=== PATIENT | female | born 1980 | race Caucasian/White ===

== ENCOUNTER → 2019-09-03 15:25 | Outpatient (CLI) | payer OTHER, SELFPAY ==
--- NOTE | 2019-09-03 15:30 | BI_ITS ---
MAMMOGRAPHY - BILATERAL SCREENING REASON FOR EXAM: Female, 39 years old. Routine annual screening examination. PERTINENT HISTORY: Non-contributory. TECHNIQUE: Digital bilateral breast ishaan (3D mammographic acquisition) in the CC and MLO projections. 2-D mediolateral oblique (MLO) and craniocaudad (CC) views of both breasts were obtained. CAD: Full Field Digital Mammography with Computer Added Detection was performed. COMPARISON: None. Baseline examination. FINDINGS: Breast Composition: The breasts are heterogeneously dense, which may obscure small masses. There are no dominant masses or suspicious calcifications. No other significant abnormalities are identified. BI/SCREEN MAMM (CAD) W/ISHAAN BILAT IMPRESSION: Negative screening mammogram. Yearly followup mammogram recommended. (A) ASSESSMENT CATEGORY: BIRADS Category 1: Negative. A letter regarding these results will be sent to the patient by the facility within 30 days. Approximately 10% of breast cancers are not detected by mammography. A normal mammogram should not delay biopsy of a clinically suspicious abnormality. [id number] Electronically Signed: Daryn Blas, at 8:23 EDT , Service support ,
== END ==
PROVIDERS: Family Provider Orthopaedic Surgery; PCP Orthopaedic Surgery; Referring Provider Obstetrics & Gynecology; Visit Provider Obstetrics & Gynecology
DX: Z12.31 Encounter for screening mammogram for malignant neoplasm of breast (principal)
CPT/HCPCS: 77063; 77067

== ENCOUNTER → 2019-09-10 | Outpatient (CLI) | payer OTHER, SELFPAY ==
[2019-09-10 11:51] VITALS: BMI 33.3
[2019-09-15 09:13] LABS: HPV APTIMA, High Risk Negative (Negative)
== END | disposition home or self-care (01) ==
LOC: PAVLAB 15:32
PROVIDERS: Family Provider Orthopaedic Surgery; PCP Orthopaedic Surgery; Visit Provider Nurse Practitioner Women's Health
DX: Z12.4 Encounter for screening for malignant neoplasm of cervix (principal)
CPT/HCPCS: 87624; 88175; G0145

== ENCOUNTER → 2022-11-15 | Outpatient (CLI) | payer OTHER, SELFPAY ==
--- NOTE | 2022-11-15 08:16 | BI_ITS ---
MAMMOGRAPHY - BILATERAL SCREENING REASON FOR EXAM: Female, 42 years old. Routine annual screening examination. PERTINENT HISTORY: Non-contributory. TECHNIQUE: Digital bilateral breast ishaan (3D mammographic acquisition) in the CC and MLO projections. 2-D mediolateral oblique (MLO) and craniocaudad (CC) views of both breasts were obtained. CAD: Full Field Digital Mammography with Computer Added Detection was performed. COMPARISON: Comparison is made with prior study 09/03/2019. FINDINGS: Breast Composition: The breasts are heterogeneously dense, which may obscure small masses. There are no dominant masses or suspicious calcifications. No other significant abnormalities are identified. There has been no significant change since the prior study. BI/SCRN MAMM (CAD)W/ISHAAN BILAT IMPRESSION: Stable bilateral screening mammogram. Yearly follow-up mammogram recommended. (A) ASSESSMENT CATEGORY: BIRADS Category 1: Negative. A letter regarding these results will be sent to the patient by the facility within 30 days. Approximately 10% of breast cancers are not detected by mammography. A normal mammogram should not delay biopsy of a clinically suspicious abnormality. [id number] Electronically Signed: Daryn Blas MD at 9:11 EST ,
== END | disposition home or self-care (01) ==
LOC: OPBI 08:14
PROVIDERS: PCP Orthopaedic Surgery; Visit Provider Nurse Practitioner Women's Health
DX: Z12.31 Encounter for screening mammogram for malignant neoplasm of breast (principal)
CPT/HCPCS: 77063; 77067

== ENCOUNTER → 2023-11-20 | Outpatient (CLI) | payer BC, SELFPAY ==
[2023-11-24 06:09] LABS: HPV APTIMA, High Risk Negative (Negative)
== END | disposition home or self-care (01) ==
LOC: LABSPEC 15:04
PROVIDERS: PCP Orthopaedic Surgery; Referring Provider Nurse Practitioner Women's Health; Visit Provider Nurse Practitioner Women's Health
DX: Z12.4 Encounter for screening for malignant neoplasm of cervix (principal)
CPT/HCPCS: 87624; 88175; G0145

== ENCOUNTER → 2023-11-28 | Outpatient (CLI) | payer BC, SELFPAY ==
--- NOTE | 2023-11-28 08:19 | BI_ITS ---
MAMMOGRAPHY - BILATERAL SCREENING REASON FOR EXAM: Female, 43 years old. Routine annual screening examination. PERTINENT HISTORY: Non-contributory. TECHNIQUE: Digital bilateral breast ishaan (3D mammographic acquisition) in the CC and MLO projections. 2-D mediolateral oblique (MLO) and craniocaudad (CC) views of both breasts were obtained. CAD: Full Field Digital Mammography with Computer Added Detection was performed. COMPARISON: Comparison is made with prior study dated November 15, 2022 and September 03, 2019. FINDINGS: Breast Composition: The breasts are heterogeneously dense, which may obscure small masses. There are no dominant masses or suspicious calcifications. Stable small benign-appearing bilateral axillary lymph nodes. No other significant abnormalities are identified. There has been no significant change since the prior study. BI/SCRN MAMM (CAD)W/ISHAAN BILAT IMPRESSION: Stable bilateral screening mammogram. Yearly follow-up mammogram recommended. (A) ASSESSMENT CATEGORY: BIRADS Category 2: Benign. A letter regarding these results will be sent to the patient by the facility within 30 days. Approximately 10% of breast cancers are not detected by mammography. A normal mammogram should not delay biopsy of a clinically suspicious abnormality. [id number] Electronically Signed: Daryn Blas MD at 9:24 EST ,
--- OUTSIDE RECORDS SUMMARY | 2023-11-28 08:50 | XMS RPT_ITS | CCD ---
Author Name Unknown Address [address] [place] [address] Organization [facility] Care Team Providers Care Plant Engineering Manager Name Role Phone LAYO REZA DO Admitting Unavailable LAYO REZA DO Primary Care Unavailable LAYO REZA DO Attending Unavailable ZACHARIAH WELLS MD Consulting Unavailable ZACHARIAH WELLS MD Referring Unavailable PROVIDER, UNKNOWN Consulting Unavailable PROVIDER, UNKNOWN Consulting Unavailable PROVIDER, UNKNOWN Consulting Unavailable Kimo MCKEON, Jose Ferrer (Rn)(Hist) Primary Care Provi ashley Unavailable Bo Mercado MD Primary Care Provider [phone] JOSHUA SOTO Admitting Unavailable BO MERCADO Primary Care Unavailable JOSHUA SOTO Attending Unavailable JOSHUA SOTO Consulting Unavailable BO MERCADO Primary Care Unavailable JOSHUA SOTO Attending Unavailable [facility]-, JOHNNY Mcgill Unavailable [phone] [place] Unavailable Unavailable CHENG WHITNEY Unavailable Nano ASTORGA MD Unavailable WALNUT YOMBA SHOSHONE Unavailable Unavailable ENT, GENERAL Unavailable Unavailable Michelle WELLS MD Unavailable REDD LEBRON MD Unavailable Nessa Whiting RN Unavailable Unavailable Ramy Johnson Unavailable Unavailable SLOAN TREVINO Unavailable Unavailable Manjula MCKEON, Manuela Unavailable Unavailable Elissa Navarrete Unavailable Unavailable RAMY JOHNSON Unavailable Unavailable Neida MCKEON, Denisse Unavailable Unavailab Coleen Collins Unavailable Unavailable Clarice Arnold Unavailable Unavailable Unavailable Unavailable Medications Current Medications Medication Drug Class(es) Dates Sig (Normalized) Sig (Original) miconazole nitrate 20 mg/ml vaginal cream (1 source) Azole Antifungal Monistat 7 2 % vaginal cream ; 1 in the evening (2 %) Comments: OTC Completed/Discontinued Medications Medication Drug Class(es) Dates Sig (Normalized) Sig (Original) amoxicillin 875 mg oral tablet (4 sources) Penicillin-class Antibacterial Start: 10-28-2022 End: 11-07-2022 take 1 tablet by mouth twice daily amoxicillin 875 mg oral tablet ; 1 (one) tablet two times daily for 10 days Quantity: 20 {Tablet} Refills: 0 Ordered: 25-Jan-2023 MD Michelle WELLS Start: 28-Oct-2022 End: 07-Nov-2022 Status: Inactive Problems Active Problems Problem Classification Problem Date Documented Date Episodic/Chronic Acute and chronic tonsillitis (1 source) Acute tonsillitis; Translations: [Acute tonsillitis, unspecified] 02-10-2011 Episodic Acute bronchitis (1 source) Acute bronchitis; Translations: [Acute bronchitis, unspecified] 08-03-2013 Episodic Administrative/social admission (2 sources) Patient encounter status; Translations: [Counseling, unspecified] 08-22-2018 Episodic Bacterial infection; unspecified site (1 source) Staphylococcal infectious disease; Translations: [Unspecified staphylococcus as the cause of diseases classified elsewhere] 01-01-2016 Episodic Biliary tract disease (6 sources) Gallbladder calculus with acute cholecystitis and no obstruction; Translations: [Calculus of gallbladder with acute and chronic cholecystitis without obstruction] Onset: 10-04-2023 10-18-2023 Episodic Other aftercare (1 source) Removal of sutures done; Translations: [Encounter for removal of sutures] 07-23-2020 Episodic Other and unspecified benign neoplasm (1 source) Pigmented skin lesion ; Translations: [Melanocytic nevi, unspecified] 07-06-2020 Episodic Other complications of (1 source) Mild hyperemesis gravidarum, unspecified as to episode of care or not applicable 01-14-2012 Episodic Other eye disorders (1 source) Subconjunctival hemorrhage; Translations: [Conjunctival hemorrhage, unspecified eye] 03-08-2012 Episodic Other nutritional; endocrine; and metabolic disorders (1 source) Obese class I; Translations: [Obesity, unspecified] Onset: 10-04-2023 10-04-2023 Chronic Other and delivery including normal (3 sources) Normal in primigravida; Translations: [Encounter for supervision of normal first , unspecified trimester] Onset: 02-17-2012 11-08-2021 Episodic Other skin disorders (2 sources) Skin tag; Translations: [Other hypertrophic disorders of the skin] 07-23-2014 Episodic Other skin disorders (3 sources) Mass of neck; Translations: [Localized swelling, mass and lump, neck] 07-23-2014 Episodic Other skin disorders (1 source) Unspecified hypertrophic and atrophic conditions of skin 02-15-2013 Episodic Other upper respiratory disease (1 source) Allergic rhinitis due to pollen; Translations: [Allergic rhinitis due to pollen] 04-01-2014 Chronic Other upper respiratory infections (2 sources) Bacterial sinusitis; Translations: [Chronic sinusitis, unspecified] 10-27-2023 Chronic Other upper respiratory infections (6 sources) Viral pharyngitis; Translations: [Acute pharyngitis, unspecified] 08-22-2018 Episodic Residual codes; unclassified (2 sources) Overweight; Translations: [Other specified conditions influencing health status] 02-18-2019 Episodic Skin and subcutaneous tissue infections (2 sources) Abscess; Translations: [Cellulitis, unspecified] 09-18-2017 Episodic Sprains and strains (1 source) Low back strain; Translations: [Strain of muscle, fascia and tendon of lower back, initial encounter] 11-22-2018 Episodic Unclassified (1 source) Post Op Onset: 10-18-2023 Past or Other Problems Problem Classification Problem Date Documented Date Episodic/Chronic Other complications of (2 sources) Nausea and vomiting; Translations: [Vomiting of , unspecified] Onset: 02-17-2012 02-17-2012 Episodic Unclassified (1 source) Physical examination - The patient is here for a annual physical. The patinet denies tobacco use. 10-27-2023 Unclassified (1 source) Cough - The onset of the cough has been sudden and has been occurring in a persistent pattern for 4 weeks. The course has been constant. The cough is characterized as moist and productive sputum (clear to green). The symptoms have been associated with headache (one time), hoarseness, night sweats, sore throat and wheezing, while the symptoms have not been associated with body aches, chest pain, dyspnea, fever or runny nose. 10-28-2022 Unclassified (1 source) Well Woman Visit - Note for Well Woman Visit : [employer] form for work. 09-15-2022 Unclassified (1 source) Suture removal - The sutures were placed here. The date the sutures were placed was 07/06/2020. The suture location is right abdomen. 07-23-2020 Unclassified (1 source) Excision - The lesion is located on the the trunk. 07-06-2020 Unclassified (1 source) Physical examination - The patient is here for a annual physical. 06-15-2020 Unclassified (1 source) Physical examination - The patient is here for a annual physical. Note for Physical examination : Yearly labs drawn at work 02-18-2019 Unclassified (1 source) Back Pain Lumbar, Acute - Note for Acute lumbar back pain : Pt was bending over giving her son a bath and felt pain in her lower left back. Pain is constant and worse with certain movements. Pain radiates down to her tailbone. Pt has been using ice and Aleve 2x daily.. 11-22-2018 Unclassified (1 source) sore throat - The sore throat has been occurring for 4 days. The symptoms have been associated with cough, ear pain and runny nose, while the symptoms have not been associated with fever. 08-22-2018 Unclassified (1 source) Skin lesion - The skin lesion appeared gradually and has been occurring for 2 weeks (Three days of redness and swelling at the site.). The skin lesion is characterized as red. The skin lesion is located on the groin (left.). There has been associated pain, while there has been no fever. 09-18-2017 Unclassified (1 source) Skin lesion - The skin lesion has been occurring for 1 week. The skin lesion is located on the lower extremity. There has been associated pain. Note for Skin lesion : right post proximal thigh 09-10-2016 Unclassified (1 source) Skin lesion - The skin lesion appeared rapidly and has been occurring for 1 week. The skin lesion is characterized as weeping. The skin lesion is located on the abdomen (right). 01-01-2016 Unclassified (1 source) sore throat - The onset of the sore throat has been acute and has been occurring in a persistent pattern for 6 days. The symptoms have been associated with cough (slight), ear pain, fever (102, but gone now.) and swelling of neck glands. 01-09-2015 Unclassified (1 source) Excision - Note for Excision : Patient has been seen previously for a skin tag on her left shoulder and is here to have a removed today. She also has a bump on the right side of neck that has not improved since her previous appt. in May. 07-23-2014 Unclassified (1 source) Skin lesion - Note for Skin lesion : Pt has a small hard knot on the right side of her neck. It has been there for about 2 months and is occasionally painful. She also has a raised skin tag on the back of her left shoulder she would like looked at and possible removed sometime. 06-10-2014 Unclassified (1 source) sore throat - The sore throat has been occurring for 3 weeks. There has been no associated fever. Note for sore throat : Seen 2 weeks ago, given Amoxicillin.. 04-01-2014 Unclassified (1 source) sore throat - The onset of the sore throat has been gradual and has been occurring in a persistent pattern for 1 week. The course has been unchanged. The symptoms have been associated with change in voice, difficulty in swallowing, post-nasal drip, sinus pain and swelling of neck glands. 03-10-2014 Unclassified (1 source) cough - The cough has been occurring for 1 week. The symptoms have been associated with fever. Note for cough : Here for exam. 08-03-2013 Unclassified (1 source) Skin lesion - The skin lesion has been occurring for 5 years. It has been increasing in size. The skin lesion is located on the neck. Note for Skin lesion : pt. has 2 skin tags? that she would like looked at today. 02-15-2013 Unclassified (1 source) sore throat - The onset of the sore throat has been acute and has been occurring for 4 days. The symptoms have been associated with runny nose (took sudafed x 1.). Note for sore throat : pt is .. 03-08-2012 Unclassified (1 source) Abdominal Pain, Female - Symptoms include confirmed , while symptoms do not include nausea or vomiting. The pain is located in the entire abdomen. The patient describes the pain as crampy. Onset was gradual 2 week(s) ago. The symptoms occur constantly. The patient describes this as worsening. Note for Abdominal Pain, Female : States she would not describe her stomach as painful , just uncomfortable . States just drinking a little bit of water makes me burp . Did have a positive test. Thinks she is about 8 weeks along. Here for exam. 01-14-2012 Unclassified (1 source) Sore throat - The sore throat has been occurring for 1 day. There has been associated chills, cough, generalized achiness and left ear pain. Note for Sore throat : C/o sore spot on tongue. 02-10-2011 Results Test Name Value Interpretation Reference Range Facil ity Vital Signs Date Time Vital Sign Value Performing Clinician Faci lity 10-27-2023 14:22-0500 Body height 165.1 cm JOHNNY WELLS iwi Work Phone: [employer]; [place] [employer] 10-27-2023 14:22-0500 Body mass index (BMI) [Ratio] 32.8 kg/m2 JOHNNY WELLS iwi Work Phone: [employer]; [place] [employer] 10-27-2023 14:22-0500 Body surface area Derived from formula 1.97 m2 JOHNNY WELLS iwi Work Phone: [employer]; [facility] [employer] 10-27-2023 14:22-0500 Body temperature 98.5 [degF] JOHNNY WELLS iwi Work Phone: [employer]; [facility] [employer] Encounters Encounter Date Encounter Type Care Provider Facility Start: 10-27-2023 End: 10-27-2023 Patient encounter procedure JOHNNY WELLS iwi Work Phone: [employer]; [facility] [employer] Start: 10-27-2023 End: 10-27-2023 Periodic preventive med est patient 40-64yrs JOHNNY WELLS iwi Work Phone: [facility] [employer] Start: 10-18-2023 End: 10-18-2023 ambulatory BO MERCADO Facility:[id number] Start: 10-18-2023 End: 10-18-2023 Patient encounter procedure Joshua Soto MD Work Phone: [facility] Procedures Date Procedure Procedure Detail Performing Clinician Start: 11-13-2023 End: 11-13-2023 Microscopic examination of cervical Papanicolaou smear JOHNNY WELLS [facility]- Work Phone: Plan of Treatment Date Care Activity Detail Author Start: 07-14-2023 Covid-19 Vaccine () Covid-19 Vaccine () [facility] Start: 07-14-2023 Influenza vaccination Influenza Vacc ine (#1) [facility] Start: 11-13-2022 Depression Assessment Depression Ass essment [facility] Start: 06-26-2022 Urine microalbumin profile DTaP,Tdap,Td Vaccine (2 - Td or Tdap) [facility] Start: 02-18-2019 Patient Education [facility]; [facility] [employer] Start: 2019 Mammography Mammogram Screening [facility] Start: 11-22-2018 Patient Education [employer]; [employer]. Start: 01-19-2017 HPV Testing HPV Testing [facility] Start: 01-19-2017 Pap Testing Pap Testing [facility] Start: 09-10-2016 Patient Education CELLULITIS I ndication: Cellulitis and abscess Start: 10-Sep-2016 Instruction Type: Patient Education [employer]; [facility] [employer] YOMBA SHOSHONE [employer]. Start: 08-03-2013 Patient Education Acute Bronch itis: acute bronchitis Indication: Acute bronchitis Start: 03-Aug-2013 Instruction Type: Patient Education [employer]; [employer] Start: 1997 Hepatitis C Screening Hepatitis C Sc guanaconing [facility] Start: 1997 HIV Screening HIV Screening [facility] Start: 1979 Covid-19 Vaccine (#1) Covid-19 Vacci ne (#1) [facility] Start: 1979 Hepatitis B Vaccine (1 of 3 - 3-dose series) Hepatitis B Vaccine (1 of 3 - 3-dose series) [facility] Immunizations Immunization Date Immunization Notes Care Provider Lucia meraluly 06-26-2012 tetanus toxoid, redu jose ramon diphtheria toxoid, and acellular pertussis vaccine, adsorbed Layo Jarvisman Work Phone: [facility] influenza virus vaccine, unspecified formulation JOHNNYCarissa WELLS [facility]- Work Phone: [facility] [employer]; [employer] [facility] Emergency DepartmentDatavolution Payers Date Payer Category Payer Unknown [id number] 2022 Unknown [id number] 1980 Unknown [id number] Social History Date Type Detail Facility Start: 01-20-2012 Tobacco smoking stat [facility] Never smoked tobacco [facility] Work Phone: Start: 01-20-2012 Tobacco use and exposure Smokeless tobacco non-user [facility] Work Phone: Start: 10-08-2012 End: 10-18-2023 Alcohol intake Current drinker of alcohol (finding) [facility] Start: 01-17-2012 Alcohol Comment occasionally,N OT WHILE [facility] Start: 1980 Sex Assigned At Not on file [facility] Start: 10-04-2023 End: 10-18-2023 Gender identity Not on file [facility] Start: 10-04-2023 End: 10-18-2023 History of Social function [employer] [facility] [employer]; [employer] [facility] DepartmentDat[facility]olution National Score (1-100), lower number is lower risk 67 [facility] Alcohol Use: Alcohol Use: ; Y es for Alcohol Use. 1 to 7 drinks per week. 1 drink per occasion. [employer] [facility] DepartmentC[facility] [employer]; [facility] [employer] [facility] [employer] [facility] Department[facility] Marital status: Marital status: ; . [facility] [employer] [facility] DepartmentDat[facility].; [facility] Tobacco use: Tobacco use: ; N ever smoker. [facility] [employer] [facility] DepartmentDat[facility].; [facility] Center[facility]. Female [facility] DepartmentDat[facility]olution.; [facility] Center[facility] Work Phone: Occasional alcohol use [facility].; [facility] Work Phone: [facility] [employer] [facility] Emergency DepartmentDatavolution.; [facility] Work Phone: Progress note 10-18-2023 Note Date & Type Note Facility 10-18-2023 Note HNO ID: [id number] Author: Joshua Soto MD Service: ? Author Type: Physician Type: Progress Notes Filed: 10/18/2023 11:12 AM Note Text: H AND P Date: October 18, 2023 Chief Complaint: Patient presents with: Post Op: Lap Kristi 10/04/23 HPI: Darrel Dey is a 43 year old female. Patient is 2 weeks status post laparoscopic cholecystectomy for cholelithiasis with cholecystitis. She is doing well without complaint. ALLERGIES No Known Allergies PAST MEDICAL HISTORY Diagnosis Date Cholelithiasis IBS PAST SURGICAL HISTORY Procedure Laterality Date DELIVERY ONLY 08/21/2012 , low transverse L'SCOPE CHOLECYSTECTOMY 10/04/2023 Dr. Soto PAST SURGICAL HISTORY OF WISDOM TEETH EXTRACTION PAST SURGICAL HISTORY OF mass removed from neck FAMILY HISTORY Problem Relation Age of Onset Hypertension Father Arthritis Paternal Grandmother Alzheimer's Disease Paternal Grandfather Alzheimer's Disease Maternal Grandfather Asthma Father COPD Maternal Grandfather Social History Tobacco Use Smoking status: Never Smokeless tobacco: Never Vaping Use Vaping Use: Never used Substance Use Topics Alcohol use: Yes Comment: occasionally,NOT WHILE Drug use: No No current outpatient medications on file. No current facility-administered medications for this visit. Review of Systems Ht 165.1 cm (5' 5 ) Wt 90.7 kg (200 lb) LMP 10/13/2015 BMI 33.28 kg/m? Physical Exam Abdominal: Comments: Soft, nontender, incisions healed with no signs of infection or hernia ASSESSMENT/PLAN: 1. Calculus of gallbladder with acute on chronic cholecystitis without obstruction - ICD9: 574.00, 574.10, ICD10: K80.12 Stable postop cholecystectomy, diet as tolerated, no heavy lifting 2 more weeks Joshua Soto MD [facility] History of Present illness Narrative 10-18-2023 Joshua Soto MD - 10/18/2023 11:11 AM EST Note Date & Type Note Facility 10-18-2023 History of Presen t illness Narrative H & P Date: October 18, 2023 Chief Complaint: Patient presents with: Post Op: Lap Kristi 10/04/23 HPI: Darrel Dey is a 43 year old female. Patient is 2 weeks status post laparoscopic cholecystectomy for cholelithiasis with cholecystitis. She is doing well without complaint. ALLERGIES No Known Allergies PAST MEDICAL HISTORY Diagnosis Date Cholelithiasis IBS PAST SURGICAL HISTORY Procedure Laterality Date DELIVERY ONLY 08/21/2012 , low transverse L'SCOPE CHOLECYSTECTOMY 10/04/2023 Dr. Soto PAST SURGICAL HISTORY OF WISDOM TEETH EXTRACTION PAST SURGICAL HISTORY OF mass removed from neck FAMILY HISTORY Problem Relation Age of Onset Hypertension Father Arthritis Paternal Grandmother Alzheimer's Disease Paternal Grandfather Alzheimer's Disease Maternal Grandfather Asthma Father COPD Maternal Grandfather Social History Tobacco Use Smoking status: Never Smokeless tobacco: Never Vaping Use Vaping Use: Never used Substance Use Topics Alcohol use: Yes Comment: occasionally,NOT WHILE Drug use: No No current outpatient medications on file. No current facility-administered medications for this visit. Review of Systems Ht 165.1 cm (5' 5 ) Wt 90.7 kg (200 lb) LMP 10/13/2015 BMI 33.28 kg/m Physical Exam Abdominal: Comments: Soft, nontender, incisions healed with no signs of infection or hernia ASSESSMENT/PLAN: 1. Calculus of gallbladder with acute on chronic cholecystitis without obstruction - ICD9: 574.00, 574.10, ICD10: K80.12 Stable postop cholecystectomy, diet as tolerated, no heavy lifting 2 more weeks Joshua Soto MD documented in this encounter [facility] Clinical Note 10-04-2023 Note Date & Type Note Facility 10-04-2023 Note HNO ID: [id number] Author: Marley Arciniega LSW Service: Care Management Author Type: Manager Of Compensation Type: Care Mgt Progress Note Filed: 10/04/2023 1:17 PM Note Text: CARE MANAGEMENT PROGRESS NOTE SERVICE DATE: 10/04/2023 SERVICE TIME: 1:17 PM LOS: 0 days PATIENT 43 YO FEMALE, INPATIENT FOR LAP KRISTI PERFORMED TODAY. PATIENT FULLY INDEPENDENT, LIVES WITH . THIS PATIENT HAS BEEN SCREENED FOR CARE MANAGEMENT TRANSITIONAL SERVICES. AT THIS TIME, IT DOES NOT APPEAR THIS PATIENT WILL REQUIRE TRANSITIONAL SERVICES. SHOULD THE PATIENT REQUIRE SERVICES DURING THIS ADMISSION PLEASE PLACE CARE MANAGEMENT CONSULT. SIGNATURE: KE[place] PATIENT NAME: Darrel Dey DATE: October 04, 2023 TIME: 1:16 PM PAGER/CONTACT #: [phone] [facility] Clinical Note 10-04-2023 Note Date & Type Note Facility 10-04-2023 Note HNO ID: [id number] Author: Reynaldo Lobo DO Service: ? Author Type: Anesthesiologist Type: Anesthesia Procedure Notes Filed: 10/04/2023 10:34 AM Note Text: ANESTHESIOLOGY PROCEDURE NOTE Airway General Information Procedure Start Time/Medication Administration: 10/04/2023 9:45 AM Patient location during procedure: OR Timeout Performed Pre-procedure: timeout performed Consent Obtained: Yes Patient identity confirmed: arm band, care operations team leader and patient Staffing Anesthesiologist: Reynaldo Lobo DO SOUND EQUIPMENT MECHANIC: Shanta Simon CRNA Indications and Patient Condition Indications for airway management: anesthesia and airway protection Preoxygenated: yes anesthesia circuit Patient position: sniffing Method: asleep Cricoid Pressure: Yes Manual In-Line Stabilization: No Difficult Mask: No Final Airway Details Final airway type: endotracheal airway Final Endotracheal Airway: ETT Cuffed: yes Successful intubation technique: direct laryngoscopy Devices used: intubating stylet Endotracheal tube insertion site: oral Blade: Maisha Blade size: #3 ETT size (mm): 7.0 Measurement (cm): 21 Placement verified by: capnometry Cormack-Lehane Classification: grade I - full view of glottis Number of attempts at approach: 1 Ventilation between attempts: none Failed airway: no Unrecognized esophageal intubation: no Airway not difficult SIGNATURE: Shanta Simon CRNA PATIENT NAME: Darrel Dey DATE: October 04, 2023 TIME: 9:57 AM CSN: [id number] [facility] Clinical Note 10-04-2023 Note Date & Type Note Facility 10-04-2023 Note HNO ID: [id number] Author: Reynaldo Lobo DO Service: ? Author Type: Anesthesiologist Type: Anesthesia Procedure Notes Filed: 10/04/2023 10:34 AM Note Text: ANESTHESIOLOGY PROCEDURE NOTE Airway General Information Procedure Start Time/Medication Administration: 10/04/2023 9:45 AM Patient location during procedure: OR Timeout Performed Pre-procedure: timeout performed Consent Obtained: Yes Patient identity confirmed: arm band, patient and care operations team leader Staffing Anesthesiologist: Reynaldo Lobo DO SOUND EQUIPMENT MECHANIC: Shanta Simon CRNA Indications and Patient Condition Indications for airway management: anesthesia and airway protection Preoxygenated: yes anesthesia circuit Patient position: sniffing Method: asleep Cricoid Pressure: Yes Manual In-Line Stabilization: No Difficult Mask: No Final Airway Details Final airway type: endotracheal airway Final Endotracheal Airway: ETT Cuffed: yes Successful intubation technique: direct laryngoscopy Devices used: intubating stylet Endotracheal tube insertion site: oral Blade: Maisha Blade size: #3 ETT size (mm): 7.0 Measured from: lips Measurement (cm): 20 Cormack-Lehane Classification: grade I - full view of glottis Number of attempts at approach: 1 Ventilation between attempts: BVM Failed airway: no Unrecognized esophageal intubation: no Airway not difficult SIGNATURE: Shanta Simon CRNA PATIENT NAME: Darrel Dey DATE: October 04, 2023 TIME: 9:55 AM CSN: [id number] [facility] Progress note 10-04-2023 Note Date & Type Note Facility 10-04-2023 Note HNO ID: [id number] Author: Joshua Soto MD Service: General Surgery Author Type: Physician Type: Progress Notes Filed: 10/04/2023 9:46 AM Note Text: INPATIENT PROGRESS NOTE SERVICE DATE: 10/04/2023 SERVICE TIME: 9:45 AM PRIMARY SERVICE: GS Subjective CHIEF COMPLAINT: ruq pain INTERVAL HPI: pain now constant in ruq Current Facility-Administered Medications Medication Dose Route Frequency cefOXitin 2 g in NaCl 0.9% 100 mL (MEFOXIN) 2 g INTRAVENOUS TID 9a/1p/5p lactated ringers iv infusion 100 mL/hr INTRAVENOUS CONTINUOUS NaCl 0.9% iv flush bag 20 mL INTRAVENOUS PRN morphine 2 mg injection 2 mg INTRAVENOUS q 2 H PRN Objective PHYSICAL EXAM: BP 123/71 Pulse 83 Temp (Src) 98.7 (Temporal Artery) Resp 16 Ht 5' 5 (1.65m) Wt 200 lb 6.4 oz (90.9kg) SpO2 96% LMP 10/13/2015 BMI 33.35 kg/(m2). O2 Therapy: Room Air Physical Exam Performed + murphys DATA: Diagnostic tests reviewed for today's visit: Most recent labs and imaging results. Assessment/Plan Principal Problem: Calculus of gallbladder with acute cholecystitis without obstruction (POA: Yes) Assessment AND Plan: lap choly today Active Problems: Obesity (BMI 30.0-34.9) (POA: Unknown) Assessment AND Plan: Resolved Problems: * No resolved hospital problems. * Medication and Non-Pharmacologic VTE Prophylaxis/Anticoagulants 10/03/231829 vte pharmacologic prophylaxis contraindicated ([place]) 10/03/231829 pneumatic compression stockings ([place] 10/03/231829 pneumatic compression stockings [place] VTE Prophylaxis: SIGNATURE: Joshua Soto MD PATIENT NAME: Darrel Dey DATE: October 04, 2023 TIME: 9:45 AM [facility] Progress note 10-03-2023 Note Date & Type Note Facility 10-03-2023 Note HNO ID: [id number] Author: Jackelyn Nuñez RT(R) Service: Radiology Author Type: Technologist Type: Progress Notes Filed: 10/03/2023 4:59 PM Note Text: Radiology Service Progress Note PATIENT NAME: Darrel Dey DATE OF SERVICE: October 03, 2023 TIME: 4:58 PM PATIENT IDENTITY VERIFICATION COMPLETED USING TWO (2) IDENTIFIERS: Name and Date of confirmed by patient verbally. FALL SCREENING: Has the patient had 2 falls in the last year or 1 fall with injury or currently using an Ambulatory Assistive Device (Walker, Cane, Wheelchair, Crutches, etc.)? Emergency Room Patient: Screened in ED PATIENT GENDER DATA: Female. status: : No status: NO. PATIENT RELEVANT IMPLANT DATA REVIEWED: Not Applicable RADIOLOGY DEPARTMENT: Ultrasound PERIPHERAL IV DATA: Not applicable SIGNED BY: RT Asuncion(R) October 03, 2023 4:58 PM [facility] Progress note 10-03-2023 Note Date & Type Note Facility 10-03-2023 Note HNO ID: [id number] Author: Valery Miles RT(R) Service: Radiology Author Type: Technologist Type: Progress Notes Filed: 10/03/2023 3:52 PM Note Text: Radiology Service Progress Note PATIENT NAME: Darrel Dey DATE OF SERVICE: October 03, 2023 TIME: 3:51 PM PATIENT IDENTITY VERIFICATION COMPLETED USING TWO (2) IDENTIFIERS: Name and Date of confirmed by patient verbally and Name and Date of confirmed by identification band. FALL SCREENING: Has the patient had 2 falls in the last year or 1 fall with injury or currently using an Ambulatory Assistive Device (Walker, Cane, Wheelchair, Crutches, etc.)? Emergency Room Patient: Screened in ED PATIENT GENDER DATA: Female. status: : No status: NO. PATIENT RELEVANT IMPLANT DATA REVIEWED: Not Applicable RADIOLOGY DEPARTMENT: General X-ray: Exam(s) Completed: Chest X-Ray PERIPHERAL IV DATA: Not applicable SIGNED BY: RT Megan(R) October 03, 2023 3:51 PM [facility] History of Past illness Narrative 10-03-2023 Note Date & Type Note Facility documented as of this encounter (statuses as of 10/18/2023) [facility] Evaluation note Note Date & Type Note Facility documented in this encounter [facility] Summary Purpose Family History Brother (s) Status:Active Comments:0. Father Status:Active Comments: d. cancer, uncertain primary. Possibly skin cancer. Mother Status:Active Comments:In good health. migraines Sister (s) Status:Active Comments:1. In g ood health. Advance Directives Latest Code Status on File Code Status Date Activated Date Inactivated Comments Full Code 10/03/2023 7:10 PM 10/04/2023 8:57 PM Question Answer Comments Full Code Order Discussed With: Patient Additional Source Comments INFORMATION SOURCE (unrecogn ized section and content) DATE CREATED AUTHOR AUTHOR'S ORGANIZ ATION 02/06/2023 [facility] DATE CREATED AUTHOR AUTHOR'S ORGANIZ ATION 10/20/2023 [facility] Source Comments (unrecognize d section and content) In the event this informatio n is protected by the Federal Confidentiality of Alcohol and Drug Abuse Patient Records regulations: The Federal rules restrict any use of the information to criminally investigate or prosecute any alcohol or drug abuse patient.[facility] the event this information is protected by the Federal Confidentiality of Alcohol and Drug Abuse Patient Records regulations: The Federal rules restrict any use of the information to criminally investigate or prosecute any alcohol or drug abuse patient.[facility] Care Teams (unrecognized sec tion and content) Plant Engineering Manager Relationship Specialty Start Date End Date Bo Mercado MD [id number] [place] [address] PCP - General Family Medicine 10/03/23 Reason for Visit (unrecogniz ed section and content) Specialty Diagnoses / Procedures Referred By Timur geller Referred To Contact General Surgery / GENERAL SURGERY Diagnoses Follow-up examination Calculus of gallbladder with acute cholecystitis without obstruction LAPAROSCOPIC CHOLECYSTECTOMY POSSIBLE OPEN 10/04 Procedures OFFICE/OUTPATIENT NEW MODERATE MDM 45-59 MINUTES NEW POST OP Self Joshua Soto MD [address] [place] [address] [place] [id number] Referral ID Status Reason Start Date Expiration Date V isits Requested Visits Authorized [id number] Closed OON/Self Pay Override 10/18/2023 11/12/2023 1 1 FOR RECORDS PERTAINING TO PATIENTS WHO ARE OR HAVE BEEN ENROLLED IN A CHEMICAL DEPENDENCY/SUBSTANCEABUSE PROGRAM, SOME INFORMATION MAY BE OMITTED. This clinical summary was aggregated from multiple sources. Caution should be exercised in using it in the provision of clinical care. This summary normalizes information from multiple sources, and as a consequence, information in this document may materially change the coding, format and clinical context of patient data. In addition, data may be omitted in some cases. CLINICAL DECISIONS SHOULD BE BASED ON THE PRIMARY CLINICAL RECORDS. [facility] [employer] [facility]. provides no warranty or guarantee of the accuracy or completeness of information in this document.
== END | disposition home or self-care (01) ==
LOC: OPBI 08:19
PROVIDERS: PCP Family Medicine; Referring Provider Nurse Practitioner Women's Health; Visit Provider Nurse Practitioner Women's Health
DX: Z12.31 Encounter for screening mammogram for malignant neoplasm of breast (principal)
CPT/HCPCS: 77063; 77067